=== PATIENT | female | born 1980 | race Two or more races ===

== ENCOUNTER → 2022-05-04 | Outpatient (CLI) | payer MEDICAID ==
[~2022-05-04] MED LIST: ALBUTEROL MEDNEB 2.5 mg/3ml NEB ONE
== END | disposition home or self-care (01) ==
LOC: RT 13:31
PROVIDERS: ATTEND Internal Medicine Pulmonary Disease
DX: J44.9 Chronic obstructive pulmonary disease, unspecified (principal); F17.210 Nicotine dependence, cigarettes, uncomplicated
CPT/HCPCS: 94060; 94727; 94729

== ENCOUNTER → 2022-05-04 | Outpatient (CLI) | payer MEDICAID | END | disposition home or self-care (01) | LOC: LAB 09:38 | PROVIDERS: ATTEND Internal Medicine Pulmonary Disease | DX: Z01.812 Encounter for preprocedural laboratory examination (principal); Z20.822 Contact with and (suspected) exposure to COVID-19 | CPT/HCPCS: 36415; 87426 ==

== ENCOUNTER → 2024-05-21 | Outpatient (CLI) | payer MEDICAID ==
--- NOTE | 2024-05-28 13:30 | DVHNC2 ---
Procedure - Pulmonary function test interpretation May 21, 2024 No obstructive or restrictive ventilatory defect. No significant bronchodilator response Total lung capacity is 5.22 L. DLCO unable to be performed by patient. JEOVANY GEORGES MD May 28, 2024 13:30
== END | disposition home or self-care (01) ==
LOC: RT 09:45
PROVIDERS: ATTEND Internal Medicine Pulmonary Disease
DX: J44.9 Chronic obstructive pulmonary disease, unspecified (principal)
CPT/HCPCS: 94060